=== PATIENT | male | born 1980 | race Caucasian/White ===

== ENCOUNTER → 2018-08-19 16:01 | Outpatient (CLI) | payer MEDICAID, SELFPAY | PROVIDERS: PCP Family Medicine; Visit Provider Family Medicine | DX: G47.10 Hypersomnia, unspecified (principal) | CPT/HCPCS: 95806 ==

== ENCOUNTER 2020-03-01 05:48 | Emergency (ER) | payer OTHER, SELFPAY ==
[2020-03-01 05:48] VITALS: BP 143/99; PULSE 97; RESP 18; TEMP 37; O2SAT 98; BMI 30.4
[2020-03-01 05:58] VITALS: BMI 30.4
[2020-03-01 06:10] LABS: Basophils # 0.1 K/mm3 (0-0.2); Basophils % 0.8 % (0.1-2.0); Eosinophils # 0.2 K/mm3 (0.0-0.4); Eosinophils % 2.2 % (0.1-12.0); Hematocrit 50.1 % (42.0-52.0); Hemoglobin 16.5 g/dL (14.1-18.0); Lymphocytes # 2.6 K/mm3 (0.7-4.5); Lymphocytes % 30.3 % (10-50); Mean Corpuscular Volume 96.9 fl (80-94); Mean Platelet Volume 8.5 fl (7.4-10.4); Monocytes # 0.7 K/mm3 (0.1-1.0); Monocytes % 7.7 % (1.7-9.3); Platelet Count 245 K/mm3 (142-424); Red Blood Count 5.17 M/mm3 (4.60-6.20); Red Cell Distribution Width 12.7 % (11.5-17.5); White Blood Count 8.4 K/mm3 (4.8-10.8)
[2020-03-01 06:14] LABS: Chloride 101 mmol/L (98-107); Potassium 4.2 mmoL/L (3.5-5.1); Sodium 141 mmol/L (136-145)
[2020-03-01 06:17] LABS: Alanine Aminotransferase 71 U/L (12-78); Alkaline Phosphatase 62 U/L (38-126); Amylase 82 U/L (30-110); Anion Gap 14.2 mEq/L (5-15); Aspartate Amino Transferase 46 U/L (17-59); Bilirubin,Indirect 0.6 mg/dL (0.0-0.9); Bilirubin,Total 0.6 mg/dl (0.2-1.3); Bilirubin,Unconjugated 0.6 mg/dL (0.0-1.1); Blood Urea Nitrogen 17 mg/dl (9-20); Calcium 9.8 mg/dl (8.4-10.2); Carbon Dioxide 30 mmol/L (22.0-30.0); Creatinine Clearance Estimated 142 mL/min (50-200); Estimated Glomerular Filt Rate 74 ml/min (>60); GFR (African American) 89 ML/MIN (>60); Glucose 107 mg/dl (74-100); Lipase 115 U/L (23-300)
[2020-03-01 06:18] LABS: Total Protein,Serum 8.1 g/dl (6.3-8.2)
[2020-03-01 06:41] VITALS: BP 130/73; PULSE 61; RESP 15; O2SAT 93
--- NOTE | 2020-03-01 06:42 | CT_ITS ---
PROCEDURE: CT ABDOMEN PELVIS WO CON CLINICAL INDICATION: RUQ pain COMPARISON: CT ABDPELW CT abdomen pelvis w con from 02/28/2018 TECHNIQUE: Axial images obtained with sagittal and coronal reformats. All CT scans at the facility use one or more dose reduction, viz: automated exposure control, ma/kV adjustment per patient size (including targeted exams where dose is matched to indication, i.e. head), or iterative reconstruction technique. FINDINGS: LOWER THORAX: No acute finding ABDOMEN & PELVIS: Fatty liver. Gallbladder is slightly distended. There is a small area of decreased density in the central aspect of the spleen at 6 mm nonspecific. More ill-defined area of decreased attenuation noted in the hilum of the spleen also nonspecific. Post enhanced study may provide further evaluation. The adrenal glands and pancreas are unremarkable. There is a 4 mm stone in the mid polar region of the left kidney. Unremarkable appendix. No intestinal obstruction or free air. Stomach is distended with fluid/ingested material/gas. There is a mild amount of retained colonic feces. There are few colonic diverticula noted. No evidence of diverticulitis. There are few scattered small retroperitoneal portal and mesenteric lymph nodes which are nonspecific. No acute bony findings. IMPRESSION: 1. Mildly distended gallbladder with fatty liver. 2. Nonobstructing left nephrolithiasis. 3. Mild distention of the stomach with a mild amount of retained colonic feces. Dictated by: Anibal Solo MD 03/01/2020 08:38 Anibal Solo MD in [place] 03/01/2020 08:38
--- NOTE | 2020-03-01 07:19 | HMH.EDNVD ---
ED Disposition Clinical Impression: Abdominal pain Qualifiers: Abdominal location: right upper quadrant Qualified Code(s): R10.11 - Right upper quadrant pain Disposition: Home, Self-Care Condition on Discharge: Good Instructions: DI for Acute Abdomen Additional Instructions: low fat diet and see pcp for possible hida scan and egd Referrals: Akash Ewing MD [Primary Care Provider] - - Critical Care Critical Care Time: No Attestation: On 03/01/20, the high probability of a clinically significant, sudden or life threatening deterioration of the following system(s) required my full and direct attention, intervention and personal management. The time I documented below is in addition to time spent performing reported procedures but includes the following listed in this critical care notation. Medical Decision Making - Medical Records Medical records reviewed: Yes: I reviewed the patient's medical records. - Nolberto Inquiry Pt receiving controlled substance: No Vital Signs: 03/01/20 05:48 03/01/20 06:41 Temperature 98.6 F Temperature Source Oral Pulse Rate [Right Radial] 97 H 61 Respiratory Rate 18 15 Blood Pressure [Right Arm] 143/99 H 130/73 Blood Pressure Mean [Right Arm] 113 92 Blood Pressure Source [Right Arm] Automatic Cuff Automatic Cuff Blood Pressure Position [Right Arm] Sitting Sitting 02 Sat by Pulse Oximetry 98 93 L Oxygen Delivery Method Room Air Room Air - Lab Data Lab results reviewed: Yes: I reviewed the patient's lab results. Lab Results 03/01/20 05:56: WBC 8.4, RBC 5.17, Hgb 16.5, Hct 50.1, MCV 96.9 H, MCH 32.0 H, MCHC 33.0, RDW 12.7, Plt Count 245, MPV 8.5, Neut % (Auto) 59.0, Lymph % (Auto) 30.3, [place] % (Auto) 7.7, Eos % (Auto) 2.2, Baso % (Auto) 0.8, Neut # (Auto) 5.0, Lymph # (Auto) 2.6, [place] # (Auto) 0.7, Eos # (Auto) 0.2, Baso # (Auto) 0.1 03/01/20 05:56: Sodium 141, Potassium 4.2, Chloride 101, Carbon Dioxide 30, Anion Gap 14.2, BUN 17, Creatinine 1.10, Estimated Creat Clear 142, Estimated GFR 74, Est GFR ( Amer) 89, Glucose 107 H, Calcium 9.8, Total Bilirubin 0.6, Direct Bilirubin 0.0, Conjugated Bilirubin 0.0, Indirect Bilirubin 0.6, Unconjugated Bilirubin 0.6, AST 46, ALT 71, Alkaline Phosphatase 62, Total Protein 8.1, Albumin 5.0, Amylase 82, Lipase 115 Result diagrams: 03/01/20 05:56 03/01/20 05:56 Orders (Tests/Meds): ED MEDICATIONS Generic Name Dose Route Start Last Admin Trade Name Freq PRN Reason Stop Dose Admin Sodium Chloride 8 ml 03/01/20 07:44 Sodium Chloride 0.9% 10ml Vial IV 03/31/20 07:43 NEEDED PRN dilute pepcid Discontinued Medications Generic Name Dose Route Start Last Admin Trade Name Freq PRN Reason Stop Dose Admin Famotidine 20 mg 03/01/20 07:44 03/01/20 07:47 Famotidine 20mg/2ml Vial IV 03/01/20 07:45 20 mg ONCE ONE Administration Sodium Chloride 1,000 mls @ 999 mls/hr 03/01/20 06:15 03/01/20 06:09 Sod Chlor 0.9% 1000ml Bag IV 03/01/20 07:15 999 mls/hr .Q1H1M OSBALDO Administration Ketorolac Tromethamine 30 mg 03/01/20 06:07 03/01/20 06:10 Ketorolac 30mg/Ml Vial IV 03/01/20 06:08 30 mg ONCE ONE Administration Metoclopramide HCl 10 mg 03/01/20 07:44 03/01/20 07:48 Metoclopramide Hcl 10mg/2ml Vial IVP 03/01/20 07:45 10 mg ONCE ONE Administration Ondansetron HCl 4 mg 03/01/20 06:07 03/01/20 06:10 Ondansetron 4mg/2ml Vial IV 03/01/20 06:08 4 mg ONCE ONE Administration ORDERS Category Date Time Status US gallbladder Stat Exams 03/01/20 07:43 Taken Urinalysis and Microscopic Stat Lab 03/01/20 05:58 Ordered - CT Data CT Scan: Abdomen, Pelvis Time Received: 07:[address] Reviewed: Yes: I have viewed the radiologist's interpretation Preliminary Findings: Abnormal (nonspecific) - US Data US Images: Gallbladder ED US Reviewed: Yes: I discussed the US results w/the radiologist Preliminary Findings: Thick Gall Bladder Wall Nausea/Vomiting/Diarrhea HPI
--- NOTE | 2020-03-01 07:43 | US_ITS ---
PROCEDURE: US GALLBLADDER CLINICAL INDICATION: abd pain COMPARISON: No exams were available for comparison FINDINGS: Pancreas: Unremarkable/Not well seen Liver: Diffuse increased echogenicity of the liver with poor through transmission of sound consistent with hepatic steatosis. No focal liver lesion demonstrated. There is appropriate direction of blood flow within non dilated portal vein. Right kidney: Unremarkable appearing. No hydronephrosis. Gallbladder: No definite stones are apparent. Sludge is present within the gallbladder. No wall thickening pericholecystic fluid or biliary dilatation. IMPRESSION: Gallbladder sludge, no definite stones. Fatty liver Dictated by: Anibal Solo MD 03/01/2020 09:35 Anibal Solo MD in [place] 03/01/2020 09:35
[2020-03-01 09:13] VITALS: BP 125/70; PULSE 80; RESP 18; TEMP 37; O2SAT 95
== END 2020-03-01 09:17 | disposition home or self-care (01) ==
PROVIDERS: Emergency Provider Emergency Medicine; PCP Family Medicine
DX: R10.11 Right upper quadrant pain (principal); F17.210 Nicotine dependence, cigarettes, uncomplicated
CPT/HCPCS: 74176; 76705; 80048; 80076; 82150; 83690; 85025; 96365; 96375; 99283; J2405

== ENCOUNTER → 2020-10-16 10:06 | Outpatient (CLI) | payer OTHER, SELFPAY ==
--- NOTE | 2020-10-16 10:09 | NM_ITS ---
PROCEDURE: NM HEPATOBILIARY W PHARM CLINICAL INDICATION: ABD PAIN Right upper quadrant pain and nausea COMPARISON: US US GALLBLADDER from 03/01/2020 TECHNIQUE: 8.5 mCi technetium Choletec. Ensure was given for fatty meal FINDINGS: Homogeneous activity is present within the hepatic parenchyma. Activity is present in the gallbladder by 10 minutes. Activity is present in the small bowel by 60 minutes. The gallbladder ejection fraction is calculated to be 36 percent. No pain reported with fatty meal. IMPRESSION: No evidence of common or cystic duct obstruction. Gallbladder ejection fraction is within the lower limits of normal. Dictated by: Anibal Solo MD 10/16/2020 14:51 Anibal Solo MD in [place] 10/16/2020 14:51
== END ==
PROVIDERS: PCP Family Medicine; Visit Provider Family Medicine
DX: R10.33 Periumbilical pain (principal)
CPT/HCPCS: 78227

== ENCOUNTER 2021-02-08 13:07 | Emergency (ER) | payer OTHER, SELFPAY ==
--- NOTE | 2021-02-08 15:01 | PC.NURSE ---
Pt asked how much longer is wait would be, explained to pt that we just had a in the department and we would be with him shortly.
--- NOTE | 2021-02-08 15:13 | PC.NURSE ---
While pt nurse is on the phone pt walks out of department
--- NOTE | 2021-02-08 15:33 | PC.NURSE ---
I had updated pt multiple times on wait times due to increased volume and critical patients in the ED. PT advised all he needed was the doc to look at him and a script for his thumb, advised pt that MD would be in to see him as soon as she could. PT agreeable to POC at that time. Critical event occurred in room 2 and when we came out pt was standing at the door and asked how much longer because he needed to go get his kids. I advised pt that the doctor still needed to enter his d/c stuff and we were working as quickly as possible. Pt went back into his room. While I was on the phone with CARLOS SHERMAN notified me that pt had left ED.
[2021-02-08 16:15] VITALS: BP 0/0; PULSE 0; RESP 0; TEMP -17.7; TEMP 0; O2SAT 0
--- NOTE | 2021-02-09 09:11 | HMH.EDGENADL ---
ED Disposition Clinical Impression: Patient left before treatment completed Disposition: Left Without Being Seen Condition on Discharge: Good Prescriptions: Doxycycline Monohydrate [Doxycycline [place] 100mg Tab] 100 mg PO Q12 #14 tab Transmission Status: Received by [facility] Referrals: Akash Ewing MD [Primary Care Provider] - - Critical Care Critical Care Time: No Attestation: On 02/08/21, the high probability of a clinically significant, sudden or life threatening deterioration of the following system(s) required my full and direct attention, intervention and personal management. The time I documented below is in addition to time spent performing reported procedures but includes the following listed in this critical care notation. Medical Decision Making - Medical Records Medical records reviewed: Yes: I reviewed the patient's medical records. - Nolberto Inquiry Pt receiving controlled substance: No Vital Signs: 02/08/21 16:15 Temperature 0 F L Pulse Rate 0 L Respiratory Rate 0 L Blood Pressure 0/0 L Medical Decision Narrative: 40-year-old male who presents to the emergency department with tick bite to right first palmar metacarpal. Patient states that he removed a deer tick from this area, and has noticed erythema and swelling there, it is painful, and he was worried he noted a clearing rash. He has no other complaints at this time, and has no issues with range of motion or evidence of significant underlying infection at this time. Patient prescribed 100 mg doxycycline twice daily for 1 week and discharged in stable condition at this time. Patient left AMA before able to be given return precautions for Lyme as well as joint infection, but prescription was sent to patient's pharmacy. General Adult HPI - General Stated complaint: tic bite Time Seen by Provider: 02/08/21 13:30 Mode of Arrival: Ambulatory Source of Information: Patient Limitations: No Limitations - History of Present Illness HPI narrative: 40-year-old male who presents to the emergency department with chief complaint of tick bite to right thumb. Patient states that 2 days ago he pulled a deer tick off the palmar aspect of the base of his right first metacarpal. Patient states this morning he woke up with significant pain, swelling, and erythema at this area and was worried he saw an area of central clearing. Patient is concerned for both bacterial infection as well as Lyme disease. He has a friend who is a pharmacist who advised him to go to the emergency department for antibiotics. Patient denies fevers, chills, vomiting, diarrhea, chest pain, shortness of breath, or any other complaints at this time. He does have full range of motion and intact sensation of the right first digit. MD complaint: tick bite Onset (ago): day(s) (2) Location: right, upper extremity Severity: moderate Severity scale (1-10): 3 Quality: aching Consistency: constant Relieving factors: none Exacerbating factors: none - Related Data Home Medications Medication Instructions Recorded Confirmed Citalopram Hydrobromide [Celexa] 20 mg PO DAILY 09/30/17 02/28/18 Dextroamphetamine/Amphetamine 15 mg PO DAILY 11/30/17 02/28/18 [Adderall Xr 15 mg Capsule] Previous Rx's Medication Instructions Recorded predniSONE [Prednisone 20mg 20 mg PO BID #10 tab 01/30/19 Tab] Doxycycline Monohydrate 100 mg PO Q12 #14 tab 02/08/21 [Doxycycline [place] 100mg Tab] Allergies Allergy/AdvReac Type Severity Reaction Status Date / Time No Known Allergies Allergy Verified 11/30/17 11:10 [facility] History - Hepatitis A Screen Attestation statement:: This patient has been screened for Hepatitis A risk factors. I have reviewed the patient's past medical history: Yes Medical History: Denies:: Cancer, Chronic Obstructive Pulmonary Disease (COPD), Diabetes Mellitus Type 1, Diabetes Mellitus Type 2, MRSA Comment: denies all PM
== END 2021-02-08 16:25 | disposition left against medical advice (07) ==
LOC: UTC 13:08 → ER 13:35
PROVIDERS: Emergency Provider Emergency Medicine; PCP Family Medicine
DX: Z91.19 Patient's noncompliance with other medical treatment and regimen (principal); S60.361A Insect bite (nonvenomous) of right thumb, initial encounter; W57.XXXA Bitten or stung by nonvenomous insect and other nonvenomous arthropods, initial encounter; F17.210 Nicotine dependence, cigarettes, uncomplicated

== ENCOUNTER → 2021-05-08 13:30 | Outpatient (CLI) | payer OTHER, SELFPAY | PROVIDERS: PCP Family Medicine; Visit Provider Nurse Practitioner | DX: Z20.822 Contact with and (suspected) exposure to COVID-19 (principal) | CPT/HCPCS: C9803; U0003; U0005 ==

== ENCOUNTER → 2021-07-08 15:24 | Outpatient (CLI) | payer OTHER, SELFPAY ==
--- NOTE | 2021-07-08 15:29 | XR_ITS ---
FINAL REPORT CLINICAL HISTORY: PLANTAR FASCIAL FIBROMATOSIS FINDINGS: RIGHT FOOT Three views of the right foot demonstrate no acute fracture or dislocation. There are mild degenerative changes of the 1st MTP joint. The soft tissues are unremarkable. IMPRESSION: Mild degenerative changes of the 1st MTP joint. Reviewed, Interpreted and Dictated by Dhiraj Lovett III, MD Transcribed by Praveena Montano Authenticated by Dhiraj Lovett III, MD on 07/08/2021 04:34:23 PM [facility]
--- NOTE | 2021-07-08 15:29 | XR_ITS ---
FINAL REPORT CLINICAL HISTORY: PLANTAR FASCIAL FIBROMATOSIS FINDINGS: LEFT FOOT Three views of the left foot demonstrate no acute fracture or dislocation. There are mild degenerative changes of the 1st MTP joint and the 1st IP joint. The soft tissues are unremarkable. IMPRESSION: Mild degenerative changes as described. Reviewed, Interpreted and Dictated by Dhiraj Lovett III, MD Transcribed by Praveena Montano Authenticated by Dhiraj Lovett III, MD on 07/08/2021 04:34:27 PM [facility]
[2021-07-13 21:07] LABS: D001-IgE D pteronyssinus 2.61 kU/L (Class III); D002-IgE D farinae 2.73 kU/L (Class III); E001-IgE Cat Dander 0.31 kU/L (Class 0/I); E005-IgE Dog Dander 0.26 kU/L (Class 0/I); E072-IgE Mouse Urine <0.10 kU/L (Class 0); G002-IgE Bermuda Grass <0.10 kU/L (Class 0); G006-IgE Timothy Grass <0.10 kU/L (Class 0); I006-IgE Cockroach, German <0.10 kU/L (Class 0); Immunoglobulin E, Total 235 IU/mL (6-495); M001-IgE Penicillium chrysogen <0.10 kU/L (Class 0); M002-IgE Cladosporium herbarum <0.10 kU/L (Class 0); M003-IgE Aspergillus fumigatus <0.10 kU/L (Class 0); M006-IgE Alternaria alternata <0.10 kU/L (Class 0); T001-IgE Maple/Box Elder <0.10 kU/L (Class 0); T003-IgE Common Silver Birch <0.10 kU/L (Class 0); T006-IgE Cedar, Mountain <0.10 kU/L (Class 0); T007-IgE Oak, White <0.10 kU/L (Class 0); T008-IgE Elm, American <0.10 kU/L (Class 0); T010-IgE Walnut 0.61 kU/L (Class II); T011-IgE Maple Leaf Sycamore <0.10 kU/L (Class 0); T014-IgE Cottonwood <0.10 kU/L (Class 0); T015-IgE Ash, White <0.10 kU/L (Class 0); T022-IgE Pecan, Hickory 1.02 kU/L (Class II); T070-IgE White Mulberry <0.10 kU/L (Class 0); W001-IgE Ragweed, Short 0.34 kU/L (Class I); W011-IgE Thistle, Russian <0.10 kU/L (Class 0); W018-IgE Sheep Sorrel <0.10 kU/L (Class 0)
== END ==
PROVIDERS: PCP Family Medicine; Visit Provider Otolaryngology
DX: M72.2 Plantar fascial fibromatosis (principal)
CPT/HCPCS: 36415; 73630; 82785; 86003

== ENCOUNTER → 2021-07-11 15:50 | Outpatient (CLI) | payer OTHER, SELFPAY | PROVIDERS: PCP Family Medicine; Visit Provider Otolaryngology | DX: G47.30 Sleep apnea, unspecified (principal); R06.83 Snoring; J34.2 Deviated nasal septum | CPT/HCPCS: 95806 ==

== ENCOUNTER 2021-10-12 13:10 | Emergency (ER) | payer OTHER, SELFPAY ==
--- NOTE | 2021-10-12 14:23 | HMH.EDUTC ---
[facility] [place] Clinical Impression: Poison krystal Disposition: Home, Self-Care Condition on Discharge: Good Instructions: DI for Poison Krystal Allergy, Methylprednisolone Additional Instructions: Avoid contact with the offending substance (poison krystal). Don't start the oral steroids until tomorrow. Don't put the topical steroids (triamcinolone) on your face or your groin. Follow up with your regular doctor. GO TO THE ER FOR ANY WORSENING SYMPTOMS OR CONCERNS Take benedryl every 6 hours regularly for the next few days to help control your itching. Prescriptions: methylPREDNISolone [Medrol] 4 mg PO DIRECTED 6 Days #21 packet Transmission Status: Received by [id number] Triamcinolone Acetonide 1 applicatio TP TIDP PRN 7 Days #1 gm PRN Reason: Itching Transmission Status: Received by [id number] Referrals: Akash Ewing MD [Primary Care Provider] - Time of Disposition: 14:47 Medical Decision Making - Medical Records Medical records reviewed: No: I reviewed the patient's medical records. - Nolberto Inquiry Pt receiving controlled substance: No Vital Signs: 10/12/21 14:24 10/12/21 14:51 Temperature 97.6 F 97.6 F Temperature Source Oral Pulse Rate 80 Pulse Rate [Left Radial] 80 Respiratory Rate 19 19 Blood Pressure 124/67 Blood Pressure [Right Arm] 124/67 Blood Pressure Mean [Right Arm] 86 02 Sat by Pulse Oximetry 97 Orders (Tests/Meds): ED MEDICATIONS Discontinued Medications Generic Name Dose Route Start Last Admin Trade Name Freq PRN Reason Stop Dose Admin Methylprednisolone Sodium Succinate 125 mg 10/12/21 14:33 10/12/21 14:44 Methylprednisolone Sod Succ 125mg Vial IM 10/12/21 14:34 125 mg ONCE ONE Administration [facility] [place] HPI - General Stated complaint: rash Time Seen by Provider: 10/12/21 14:25 - History of Present Illness Provider Complaint: He states that he has been having a rash on his face, upper legs, buttocks and abdomen for the past 4 days. He states that he came into contact with poison krystal before his symptoms began, but he is not usually this sensitive to poison krystal. He denies any fever or chills. - Related Data Home Medications Medication Instructions Recorded Confirmed dextroamphetamine sulfate 10 mg 10 mg PO DAILY tab 07/08/21 09/04/21 tablet Previous Rx's Medication Instructions Recorded fluticasone propionate 50 2 spray INTRANASAL DAILY #16 g 07/08/21 mcg/actuation nasal spray,suspension levocetirizine 5 mg tablet 5 mg PO DAILY #90 tab 09/04/21 Triamcinolone Acetonide 1 applicatio TP TIDP PRN 7 Days #1 10/12/21 gm methylPREDNISolone [Medrol] 4 mg PO DIRECTED 6 Days #21 10/12/21 packet Allergies Allergy/AdvReac Type Severity Reaction Status Date / Time amphetamine Allergy Verified 10/12/21 14:26 [From Adderall XR] dextroamphetamine Allergy Verified 10/12/21 14:26 [From Adderall XR] fluoxetine Allergy Verified 10/12/21 14:26 [facility] History - Hepatitis A Screen Attestation statement:: This patient has been screened for Hepatitis A risk factors. I have reviewed the patient's past medical history: Yes Medical History: Denies:: Cancer, Chronic Obstructive Pulmonary Disease (COPD), Diabetes Mellitus Type 1, Diabetes Mellitus Type 2, MRSA Other Medical History: Reports: Sinus Problems Comment: denies all PMHx Other Surgeries: Yes: No Previous Surgery - Social History Smoking Status: Current every day smoker Tobacco Type: cigarettes # Packs/Day (cigarettes): 1 Alcohol Intake: never Occupational Status: employed Family Hx:: No significant family history ROS Obtained: Yes All systems reviewed & no additional complaints - Constitutional Constitutional: Denies chills, Denies fever(s) - Eyes Eyes: Denies eye discharge, Denies itchy eyes - Musculoskeletal Musculoskeletal: Denies joint pain - Integumentary/Breasts Skin/Breast: Reports as
[2021-10-12 14:24] VITALS: BP 124/67; PULSE 80; RESP 19; TEMP 36.4; O2SAT 97; BMI 31.6
[2021-10-12 14:51] VITALS: BP 124/67; PULSE 80; RESP 19; TEMP 36.4
== END 2021-10-12 14:53 | disposition home or self-care (01) ==
PROVIDERS: Emergency Provider Nurse Practitioner Family; PCP Family Medicine
DX: L23.7 Allergic contact dermatitis due to plants, except food (principal)
CPT/HCPCS: 96372; 99212; G0463

== ENCOUNTER → 2022-01-10 19:48 | Outpatient (CLI) | payer OTHER, SELFPAY | PROVIDERS: PCP Family Medicine; Visit Provider Otolaryngology | DX: G47.33 Obstructive sleep apnea (adult) (pediatric) (principal); J34.2 Deviated nasal septum; R06.83 Snoring | CPT/HCPCS: G0399 ==

== ENCOUNTER 2023-09-27 02:14 | Emergency (ER) | payer OTHER, SELFPAY ==
[2023-09-27 02:23] VITALS: BP 158/99; PULSE 71; RESP 16; TEMP 36.1; O2SAT 99; BMI 32.5
--- NOTE | 2023-09-27 02:25 | ECG_ITS ---
APPROVED REPORT Exam: Resting ECG HR:61 bpm ECG Measurements Heart Rate 61 AXES [place] 168 P 59 QRSd 109 QRS 66 QT 412 T 59 QTc 414 Conclusion SINUS RHYTHM NORMAL ECG Electronically signed by : YONNY COREY, 09/27/2023 08:44:06
--- NOTE | 2023-09-27 02:25 | CT_ITS ---
PROCEDURE INFORMATION: Exam: CT Abdomen And Pelvis With Contrast Exam date and time: 09/27/2023 2:32 AM Age: 42 years old Clinical indication: Abdominal pain; Epigastric; Additional info: Epigastric pain TECHNIQUE: Imaging protocol: Computed tomography of the abdomen and pelvis with contrast. Radiation optimization: All CT scans at this facility use at least one of these dose optimization techniques: automated exposure control; mA and/or kV adjustment per patient size (includes targeted exams where dose is matched to clinical indication); or iterative reconstruction. Contrast material: ISOVUE; Contrast volume: 75 ml; Contrast route: IV; COMPARISON: CT ABDOMEN PELVIS WO CON 03/01/2020 6:54 AM FINDINGS: Liver: Normal. No mass. Gallbladder and bile ducts: Normal. No calcified stones. No ductal dilation. Pancreas: Normal. No ductal dilation. Spleen: Normal. No splenomegaly. Adrenal glands: Normal. No mass. Kidneys and ureters: 5 mm stone is seen in the central collecting system of the left kidney, no evidence of urolithiasis or hydronephrosis present. Stomach and bowel: The stomach is distended with solids and liquids. Appendix: No evidence of appendicitis. Intraperitoneal space: Unremarkable. No free air. No significant fluid collection. Vasculature: Unremarkable. No abdominal aortic aneurysm. Lymph nodes: Unremarkable. No enlarged lymph nodes. Urinary bladder: Unremarkable as visualized. Reproductive: Unremarkable as visualized. Bones/joints: Unremarkable. No acute fracture. Soft tissues: Unremarkable. IMPRESSION: 1. Nonobstructing left-sided nephrolithiasis. 2. Large volume stomach containing solids and liquids but no obvious mass or inflammation noted.
--- NOTE | 2023-09-27 02:25 | [facility].EDGENADL ---
Discharge Plan Disposition Patient Disposition: Home, Self-Care Condition: Good Prescriptions Prescriptions: New metoclopramide HCl [Reglan] 10 mg tablet 10 mg PO Q6H PRN (Reason: nausea and vomiting) Qty: 14 0RF dicyclomine 20 mg tablet 20 mg PO QID PRN (Reason: abdominal pain) Qty: 20 0RF No Action levocetirizine [Xyzal] 5 mg tablet 5 mg PO DAILY Qty: 90 3RF dextroamphetamine sulfate 10 mg tablet 10 mg PO DAILY fluticasone propionate [Flonase Allergy Relief] 50 mcg/actuation spray,suspension 2 spray INTRANASAL DAILY Qty: 16 3RF Rx Instructions: administer into each nostril triamcinolone acetonide 15 GM cream 1 applicatio TP TIDP PRN (Reason: Itching) 7 Days Qty: 1 0RF Rx Instructions: 0.025% methylprednisolone 4 MG tablets,dose pack 4 mg PO DIRECTED 6 Days Qty: 21 0RF Referrals Follow up/Referrals: Akash Ewing MD [Primary Care Provider] - See instructions Activity Restrictions/Add. Instructions Additional Instructions/Restrictions: You were evaluated in the emergency department today. Please picker and sorter load and unload your prescriptions at the pharmacy and take them as needed for symptoms. Follow-up closely with your primary care provider over the next 3 days. They can refer you to gastroenterology who can help get down to the bottom of why you are experiencing the symptoms. Return to the emergency department for new or worsening symptoms Clinical Impressions Clinical Impression: Delayed gastric emptying, Abdominal pain Stand Alone Forms Stand Alone Forms: Work/School Release Instructions Patient Instructions: DI for Acute Abdominal Pain, DI for Gastroparesis Discharge ED Provider: Radha Fernandez General Adult HPI General Chief complaint: Abdominal Pain Stated complaint: pain in abdomen Time Seen by Provider: 09/27/23 02:17 History of Present Illness HPI narrative: This patient is a 42-year-old male with a history of TERRA and fatty liver presenting to the emergency department for evaluation with concern for epigastric pain that started several hours ago. He states that it severe and worse when he takes a deep breath. He also complains of nausea associated with this. He notes he had a good bowel movement but took laxatives to see if this was why he was having pain, but his pain did not improve. He denies experiencing like this in the past. No prior abdominal surgeries. No significant NSAID use. No fevers, chills, chest pain, shortness of breath, melena, hematochezia, or other concerns. No history of prior pancreatitis or alcohol use. Related Data Home Medications Medication Instructions Recorded Confirmed dextroamphetamine sulfate 10 mg 10 mg PO DAILY 07/08/21 01/27/22 tablet Previous Rx's Medication Instructions Recorded fluticasone propionate 50 2 spray intranasal DAILY #16 grams 07/08/21 mcg/actuation nasal spray,suspension (Flonase Allergy Relief) levocetirizine 5 mg tablet (Xyzal) 5 mg PO DAILY #90 tabs 09/04/21 methylprednisolone 4 mg tablets in 4 mg PO DIRECTED 6 days #21 10/12/21 a dose pack packets triamcinolone acetonide 0.025 % 1 applicatio topical TIDP PRN 10/12/21 topical cream Itching 7 days #1 g dicyclomine 20 mg tablet 20 mg PO QID PRN abdominal pain 09/27/23 #20 tabs metoclopramide HCl 10 mg tablet 10 mg PO Q6H PRN nausea and 09/27/23 (Reglan) vomiting #14 tabs Allergies Allergy/AdvReac Type Severity Reaction Status Date / Time amphetamine Allergy Verified 01/27/22 12:47 [From Adderall XR] dextroamphetamine Allergy Verified 01/27/22 12:47 [From Adderall XR] fluoxetine Allergy Verified 01/27/22 12:47 [facility] Disclaimer: The information contained in this section may have been updated after the patient was seen, as this information can be updated by other users. Medical History Mild obstructive sleep apnea Social History Smoking Status: Current every day smoker tobacco type: cigarettes packs per day: 1 alcohol intake: never current occupational status: employed Travel in the last 8 weeks: None caffeine: Yes ROS Obtained: Yes All systems reviewed & no additional complaints except as documented Physical Exam General General appearance: alert and anxious Comment: Very uncomfortable appearing Head Head exam: atraumatic and normocephalic Eye Eye exam: Present normal appearance, PERRL and EOMI ENT ENT exam: Present normal exam, normal oropharynx, mucous membranes moist and normal external ear exam Neck Neck exam: Present normal inspection, full ROM and trachea midline; Absent tenderness Chest Chest inspection: Present normal inspection and symmetric chest wall rise; Absent tenderness Respiratory Respiratory exam: Present normal lung sounds bilaterally; Absent respiratory distress, wheezes, stridor or accessory muscle use Cardiovascular Cardiovascular exam: Present regular rate and normal rhythm Abdominal Exam Abdominal exam: Present soft and tenderness (Epigastric); Absent distention, guarding, rebound or rigidity Extremities Exam Extremities exam: Present normal inspection, full ROM and normal capillary refill; Absent tenderness or edema Back Exam Back exam: Present normal inspection and full ROM; Absent tenderness Neurological Exam Neurological exam: Present alert, oriented X3, CN II-XII intact and normal gait; Absent motor sensory deficit Psychiatric Psychiatric exam: Present anxious Skin Skin exam: Present warm and dry Medical Decision Making Medical Records Medical records reviewed: Yes I reviewed the patient's medical records. Nolberto Inquiry Pt receiving controlled substance: No Vital Signs: 09/27/23 02:23 09/27/23 03:00 09/27/23 03:31 Temperature 97 F L Temperature Source Oral Pulse Rate 63 65 Pulse Rate [Right Brachial] 71 Respiratory Rate 16 Blood Pressure 142/83 H 145/75 H Blood Pressure [Right Arm] 158/99 H Blood Pressure Mean 91 89 Blood Pressure Mean [Right Arm] 118 Blood Pressure Source [Right Arm] Automatic Cuff Blood Pressure Position [Right Arm] Sitting 02 Sat by Pulse Oximetry 99 99 97 Oxygen Delivery Method Room Air Room Air Room Air 09/27/23 03:52 09/27/23 04:00 Temperature Temperature Source Pulse Rate 65 62 Pulse Rate [Right Brachial] Respiratory Rate Blood Pressure 130/70 146/85 H Blood Pressure [Right Arm] Blood Pressure Mean 88 103 Blood Pressure Mean [Right Arm] Blood Pressure Source [Right Arm] Blood Pressure Position [Right Arm] 02 Sat by Pulse Oximetry 96 96 Oxygen Delivery Method Room Air Room Air Lab Data Lab results reviewed: Yes I reviewed the patient's lab results. Lab Results 09/27/23 02:20: WBC 12.3 H, RBC 5.33, Hgb 17.5, Hct 53.2 H, MCV 99.9 H, MCH 32.8 H, MCHC 32.8, RDW 13.3, Plt Count 218, MPV 9.5, Neut % (Auto) 80.6 H, Lymph % (Auto) 13.1, Stephenson % (Auto) 4.7, Eos % (Auto) 1.0, Baso % (Auto) 0.6, Neut # (Auto) 9.9 H, Lymph # (Auto) 1.6, Stephenson # (Auto) 0.6, Eos # (Auto) 0.1, Baso # (Auto) 0.1, Sodium 137, Potassium 4.2, Chloride 103, Carbon Dioxide 29, Anion Gap 9.2, BUN 20, Creatinine 1.00, Estimated Creat Clear 145, Estimated GFR 81, Est GFR ( Amer) 98, Glucose 126 H, Calcium 9.9, Total Bilirubin 0.8, AST 49, ALT 68, Alkaline Phosphatase 66, Total Protein 7.7, Albumin 4.7, Globulin 3.0, Albumin/Globulin Ratio 1.6, Lipase 143 09/27/23 02:20 09/27/23 02:20 Orders (Tests/Meds): ED MEDICATIONS Generic Name Dose Route Start Last Admin Trade Name Freq PRN Reason Stop Dose Admin Sodium Chloride 10 ml 09/27/23 02:52 09/27/23 02:53 Sodium Chloride 0.9% 10ml Syr (Rad Only) IV 10/27/23 02:51 10 ml NEEDED PRN Administration Maintain IV Site Discontinued Medications Generic Name Dose Route Start Last Admin Trade Name Freq PRN Reason Stop Dose Admin Dicyclomine HCl 20 mg 09/27/23 03:19 09/27/23 03:26 Dicyclomine 20 Mg/2ml Vial IM 09/27/23 03:20 20 mg ONCE ONE Administration Droperidol 2.5 mg 09/27/23 04:10 09/27/23 04:18 Droperidol 5mg/2ml Vial IV 09/27/23 04:11 2.5 mg ONCE ONE Administration Lactated Ringer's 1,000 mls @ 999 mls/hr 09/27/23 02:23 09/27/23 02:33 Lactated Ringer's 1000 Ml Bag IV 09/27/23 03:23 999 mls/hr .Q1H1M ONE Administration Iopamidol 75 ml 09/27/23 02:52 09/27/23 02:52 Iopamidol-370 (76%);100ml Bottle IV 09/27/23 02:53 75 ml ONCE ONE Administration Ketorolac Tromethamine 15 mg 09/27/23 02:23 09/27/23 02:34 Ketorolac 30mg/Ml Vial IV 09/27/23 02:24 15 mg ONCE ONE Administration Metoclopramide HCl 10 mg 09/27/23 03:19 09/27/23 03:25 Metoclopramide Hcl 10mg/2ml Vial IVP 09/27/23 03:20 10 mg ONCE ONE Administration Morphine Sulfate 4 mg 09/27/23 02:23 09/27/23 02:33 Morphine 4mg/Ml Syringe IV 09/27/23 02:24 4 mg ONCE ONE Administration Ondansetron HCl 4 mg 09/27/23 02:23 09/27/23 02:33 Ondansetron 4mg/2ml Vial IV 09/27/23 02:24 4 mg ONCE ONE Administration ORDERS Category Date Time Status CT abdomen pelvis w con Stat Cat Scan 09/27/23 02:25 Completed Complete Blood Count Auto Diff Stat Lab 09/27/23 02:20 Completed Comprehensive Metabolic Panel Stat Lab 09/27/23 02:20 Completed Lipase Stat Lab 09/27/23 02:20 Completed Urinalysis and Microscopic Stat Lab 09/27/23 02:23 Ordered ECG Data Tracing #1: I reviewed this ECG and interpreted as documented below: Normal sinus rhythm with a ventricular rate of [address] changes concerning for ischemia. Normal axis and intervals. ECG initial impression date: 09/27/23 ECG initial impression time: 03:31 Medical Decision Narrative: In summary, this patient is a 42-year-old male presenting to the Emergency Department for evaluation of epigastric pain and nausea. Differential diagnoses considered include but are not limited to pancreatitis, cholecystitis, peptic ulcer disease, duodenitis, gastroenteritis, colitis, bowel obstruction. Ruling out the most morbid conditions drove assessment. On exam, the patient is anxious and uncomfortable appearing. He has epigastric tenderness. Workup included CBC, CMP, lipase, urinalysis, CT abdomen pelvis with IV contrast, and EKG. He was given a bolus of IV fluids as well as IV Toradol, morphine, and Zofran for symptomatic improvement. I independently interpreted CT scan prior to the radiologist read and noted dilated fluid and debris-filled stomach without other acute findings. Please see their read for final interpretation. Labs were obtained that demonstrated mild leukocytosis but no other acute concerning abnormalities. On reassessment, patient had some improvement but continued pain and nausea after administration of interventions above. He was then given IV Reglan and IM Bentyl. I had a discussion with him regarding his CT findings, and he notes that he was told that his stomach does not turn well along time ago. He states that he was supposed to have an EGD and had stopped eating before the EGD, but he still had a lot of food in his stomach so they felt that he was lying about not eating. He states that this is when they told him his stomach does not work normally. At 0345, patient was placed in ED observation status pending improvement in symptoms to determine whether or not the patient would be appropriate for discharge versus admission. The patient was provided serial reevaluations and cardiac monitoring while awaiting ultimate disposition. Patient required droperidol for treatment of continued nausea and epigastric discomfort. This significantly improved his symptoms. Patient completed the required 2-hour ED observation after droperidol. Ultimately, at 06 45, he was deemed to be appropriate for discharge after symptomatic improvement and the fact that he had no vomiting since in the ED. Abdominal exam is benign. Patient was discharged after a total of 3 hours in ED observation with prescriptions for Reglan and Bentyl and instructions for supportive management of what is likely gastroparesis. He was given instructions for outpatient follow-up, strict return precautions, and he was discharged after all questions were answered Critical Care Critical Care Time Critical Care Time: No
[2023-09-27 02:31] LABS: Basophils # 0.1 K/mm3 (0-0.2); Basophils % 0.6 % (0.1-2.0); Eosinophils # 0.1 K/mm3 (0.0-0.4); Hematocrit 53.2 % (42.0-52.0); Hemoglobin 17.5 g/dL (14.1-18.0); Lymphocytes # 1.6 K/mm3 (0.7-4.5); Lymphocytes % 13.1 % (10-50); Mean Corpuscular HGB Conc 32.8 g/dL (31.8-35.4); Mean Corpuscular Hemoglobin 32.8 pg (27.0-31.2); Mean Corpuscular Volume 99.9 fl (80-94); Mean Platelet Volume 9.5 fl (7.4-10.4); Monocytes # 0.6 K/mm3 (0.1-1.0); Monocytes % 4.7 % (1.7-9.3); Neutrophils # 9.9 K/mm3 (1.8-7.8); Neutrophils % 80.6 % (37.0-80.0); Platelet Count 218 K/mm3 (142-424); Red Blood Count 5.33 M/mm3 (4.60-6.20); Red Cell Distribution Width 13.3 % (11.5-17.5); White Blood Count 12.3 K/mm3 (4.8-10.8)
[2023-09-27] MEDS: MORPHINE 4MG/ML SYRINGE 4 MG IV (02:33)
[2023-09-27] MEDS: LACTATED RINGERS 1000ML 1,000 ML 999 ML IV (02:33)
[2023-09-27] MEDS: ONDANSETRON 4MG/2ML VIAL 4 MG IV (02:33)
[2023-09-27] MEDS: KETOROLAC 30MG/ML VIAL 15 MG IV (02:34)
[2023-09-27 02:35] LABS: Chloride 103 mmol/L (98-107); Potassium 4.2 mmoL/L (3.5-5.1); Sodium 137 mmol/L (136-145)
[2023-09-27 02:37] LABS: Alanine Aminotransferase 68 U/L (12-78); Aspartate Amino Transferase 49 U/L (17-59); Blood Urea Nitrogen 20 mg/dl (9-20); Creatinine Clearance Estimated 145 mL/min (50-200); Estimated Glomerular Filt Rate 81 ml/min (>60); GFR (African American) 98 ML/MIN (>60)
[2023-09-27 02:38] LABS: Albumin Level 4.7 g/dl (3.5-5.0); Albumin/Globulin Ratio 1.6 (1.1-1.8); Alkaline Phosphatase 66 U/L (38-126); Anion Gap 9.2 mEq/L (5-15); Bilirubin,Total 0.8 mg/dl (0.2-1.3); Calcium 9.9 mg/dl (8.4-10.2); Carbon Dioxide 29 mmol/L (22.0-30.0); Glucose 126 mg/dl (74-100); Lipase 143 U/L (23-300); Total Protein,Serum 7.7 g/dl (6.3-8.2)
[2023-09-27] MEDS: IOPAMIDOL-370 (76%);100ML BOTTLE 75 ML IV (02:52)
[2023-09-27] MEDS: SODIUM CHLORIDE 0.9% 10ML SYR (RAD ONLY) 10 ML IV (02:53)
[2023-09-27 03:00] VITALS: BP 142/83; PULSE 63; O2SAT 99
[2023-09-27] MEDS: METOCLOPRAMIDE HCL 10MG/2ML VIAL 10 MG IVP (03:25)
[2023-09-27] MEDS: DICYCLOMINE 20 MG/2ML VIAL IM (03:26)
[2023-09-27 03:31] VITALS: BP 145/75; PULSE 65; O2SAT 97
[2023-09-27 03:52] VITALS: BP 130/70; PULSE 65; O2SAT 96
[2023-09-27 04:00] VITALS: BP 146/85; PULSE 62; O2SAT 96
[2023-09-27] MEDS: droPERidol 5MG/2ML VIAL 2.5 MG IV (04:18)
[2023-09-27 06:59] VITALS: BP 121/74; PULSE 78; RESP 14; TEMP 36.7; O2SAT 98
== END 2023-09-27 07:04 | disposition home or self-care (01) ==
PROVIDERS: Emergency Provider Emergency Medicine; PCP Family Medicine
DX: R10.13 Epigastric pain (principal); K30 Functional dyspepsia; R11.0 Nausea; F17.210 Nicotine dependence, cigarettes, uncomplicated
CPT/HCPCS: 74177; 80053; 83690; 85025; 93005; 96361; 96372; 96374; 96375; 99285; J1790; J2405; Q9967

== ENCOUNTER 2023-12-23 15:20 | Outpatient (CLI) | payer OTHER, SELFPAY ==
[2023-12-23 16:37] LABS: Alanine Aminotransferase 74 U/L (12-78); Albumin Level 4.5 g/dl (3.5-5.0); Albumin/Globulin Ratio 1.5 (1.1-1.8); Alkaline Phosphatase 60 U/L (38-126); Anion Gap 13.4 mEq/L (5-15); Aspartate Amino Transferase 47 U/L (17-59); Bilirubin,Total 1.2 mg/dl (0.2-1.3); Blood Urea Nitrogen 15 mg/dl (9-20); Calcium 9.8 mg/dl (8.4-10.2); Carbon Dioxide 24 mmol/L (22.0-30.0); Chloride 106 mmol/L (98-107); Chol/HDL Ratio 5.7 (1-3.5); Cholesterol 252 mg/dl (140-200); Estimated Glomerular Filt Rate 72 ml/min (>60); GFR (African American) 88 ML/MIN (>60); Globulin 3.1 g/dL (1.3-3.2); Glucose 89 mg/dl (74-100); HDL Cholesterol 44 mg/dl (40-60); Potassium 4.4 mmoL/L (3.5-5.1); Sodium 139 mmol/L (136-145); Total Protein,Serum 7.6 g/dl (6.3-8.2); Triglycerides 351 mg/dl (30-150); VLDL Cholesterol 70 mg/dL (0-40)
[2023-12-23 17:08] LABS: Prostate Specific Ag, Diagnost 1.11 ng/ml (0.0-4.0)
[2023-12-23 22:10] LABS: Hemoglobin A1C 5.1 % (4.0-6.0)
== END 2023-12-23 23:59 | disposition home or self-care (01) ==
LOC: LAB 15:23
PROVIDERS: PCP Family Medicine; Visit Provider Family Medicine
DX: Z12.5 Encounter for screening for malignant neoplasm of prostate (principal); E66.09 Other obesity due to excess calories; Z68.32 Body mass index [BMI] 32.0-32.9, adult
CPT/HCPCS: 36415; 80053; 80061; 83036; 84153